=== PATIENT | female | born 1995 | race African-American/Black ===

== ENCOUNTER 2016-04-20 02:27 | Inpatient (IN) | payer MEDICAID, OTHER ==
[~2016-04-20] VITALS: Ht 165.1 cm; Wt 61.3 kg
[~2016-04-20 02:27] MED LIST: POLY10O OU
[2016-04-20 03:36] LABS: AUTOMATED NEUTROPHIL # 9.5 TH/MM3 (1.8-7.7); BASOPHIL % 0.3 % (0.0-2.0); EOSINOPHIL % 0.1 % (0.0-4.0); HEMATOCRIT 41.1 % (35.0-46.0); HEMO FLAGS DIFF FINAL; LYMPH % 10.3 % (9.0-44.0); LYMPHOCYTE # 1.2 TH/MM3 (1.0-4.8); MEAN CELL VOLUME 81.9 FL (80.0-100.0); MEAN CORPUSCULAR HEMOGLOBIN 27.2 PG (27.0-34.0); MEAN CORPUSCULAR HGB CONC 33.2 % (32.0-36.0); MONO % 6.4 % (0.0-8.0); NEUT % 82.9 % (16.0-70.0); PLATELET COUNT 251 TH/MM3 (150-450); RED BLOOD COUNT 5.01 MIL/MM3 (4.00-5.30); RED CELL DISTRIBUTION WIDTH 14.1 % (11.6-17.2); WHITE BLOOD COUNT 11.5 TH/MM3 (4.0-11.0)
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
[2016-04-20 03:48] LABS: ANION GAP 10 MEQ/L (5-15); AST (GOT) 16 U/L (16-38); BICARBONATE 22.4 MEQ/L (21.0-32.0); BLOOD UREA NITROGEN 14 MG/DL (7-18); CHLORIDE 109 MEQ/L (98-107); GLOMERULAR FILTRATION RATE 137 ML/MIN (>89); POTASSIUM 3.2 MEQ/L (3.5-5.1); SODIUM (NA) 141 MEQ/L (136-145)
[2016-04-20 03:53] LABS: AMPHETAMINE, URINE NEG (NEG); BARBITURATES, URINE NEG (NEG); COCAINE, URINE NEG (NEG)
[2016-04-20 03:54] LABS: ALKALINE PHOSPHATASE 70 U/L (45-117); ALT (GPT) 24 U/L (9-42); TOTAL BILIRUBIN ADULT 0.9 MG/DL (0.2-1.0)
[2016-04-20 04:02] LABS: ACETAMINOPHEN LESS THAN 2.0 MCG/ML (10.0-30.0)
[2016-04-20 07:00] VITALS: BP 118/74; PULSE 74; RESP 16; TEMP 98; O2SAT 99
[2016-04-20 11:57] VITALS: BP 91/58; PULSE 73; RESP 18; TEMP 98.2; O2SAT 100
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
[2016-04-20] MEDS ORDERED: MAGNESIUM HYDROXIDE SUSP 30 ML CUP PO PRN (15:15)
[2016-04-20] MEDS ORDERED: ALUMINUM/MAGNESIUM/SIMETH 30 ML CUP PO PRN (15:15)
[2016-04-20] MEDS ORDERED: ACETAMINOPHEN 325 MG TAB PO PRN (15:15)
[2016-04-20 16:55] VITALS: BP 120/73; PULSE 80; RESP 18; TEMP 98.7; O2SAT 98
[2016-04-21 06:30] VITALS: BP 103/52; PULSE 74; RESP 16; TEMP 98.1; O2SAT 100
[2016-04-21 09:13] LABS: ANION GAP 9 MEQ/L (5-15); BICARBONATE 24.9 MEQ/L (21.0-32.0); BLOOD UREA NITROGEN 13 MG/DL (7-18); CHLORIDE 107 MEQ/L (98-107); GLOMERULAR FILTRATION RATE 117 ML/MIN (>89); LDL CHOLESTEROL 56 MG/DL (0-99); POTASSIUM 3.5 MEQ/L (3.5-5.1); SODIUM (NA) 141 MEQ/L (136-145)
[2016-04-21 15:18] LABS: HEMOGLOBIN A1a 1.1 %; HEMOGLOBIN A1b 0.7 %; HEMOGLOBIN Ao 86.2 %; HEMOGLOBIN F 1.4 %; HEMOGLOBIN LA1C 1.6 %; HEMOGLOBIN P3 3.4 %
[2016-04-21] MEDS ORDERED: MAGNESIUM HYDROXIDE SUSP 30 ML CUP PO PRN (18:45)
[2016-04-21] MEDS ORDERED: hydrOXYzine HCL 50 MG TAB PO PRN (18:45)
[2016-04-21] MEDS ORDERED: ACETAMINOPHEN 325 MG TAB PO PRN (18:45)
[2016-04-21] MEDS ORDERED: ALUMINUM/MAGNESIUM/SIMETH 30 ML CUP PO PRN (18:45)
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
[2016-04-22 06:30] VITALS: BP 108/62; PULSE 88; RESP 18; TEMP 97.7; O2SAT 99
[2016-04-22 18:00] VITALS: BP 120/71; PULSE 83; RESP 18; TEMP 97.5
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
[2016-04-23 06:02] VITALS: BP 91/55; PULSE 70; RESP 18; TEMP 97.7; O2SAT 98
--- NOTE | 2016-04-23 10:29 | HHI.PYPN ---
Subjective Remarks Patient was seen and discussed with the medical staff director. Also talked to her mom. Patient denies any suicidal ideation intentions or plan. She is willing to seek outpatient counseling. Patient claimed that she is not getting any help here and she is not a behavior or management problem. Mother also is talking with their jew staff to set her up with the outpatient counseling to get her some help. Mother is not concerned or worried about her harming herself and would like to take her home. Patient was alert oriented 3 cooperative casually dressed her speech was clear spontaneous without any evidence of loose association denied any suicidal and/or homicidal ideation intentions or plan. Denied any auditory or visual hallucination. She would like to go home with her mother. We will discharge her as she does not meet the [place] act criteria Review of Systems Except as stated in HPI: all other systems reviewed are Neg Psychiatric: COMPLAINS OF: Depression Objective Alert: Yes [place]: Person (ox4), Place, Date, Situation Mood: Depressed Affect: Restricted Memory Intact: Comment (no impairmetn) Hallucinations: Other (denies any) Delusions: No Delusion Type: Other Suicidal: Ideation (denies at present) Homicidal: Ideation (denies at present) Insight/Judgement Fair Vitals/IOs Vital Signs Date Time Temp Pulse Resp B/P Pulse Ox O2 Delivery O2 Flow Rate FiO2 04/23/16 06:02 97.7 70 18 91/55 98 04/20/16 11:57 Room Air Intake and Output 04/22/16 04/22/16 04/23/16 08:00 16:00 00:00 Intake Total 240 ml 660 ml Balance 240 ml 660 ml Assessment & Plan Problem List: (1) Depression ICD Code: F32.9 Assessment & Plan Estimated LOS: days Justification for Cont. Inpt. Patient will be discharged in care of her mother to be followed up as an outpatient Request HC Surrog/Guard Advoc?: No Problem Qualifiers (1) Depression: Qualified Code: F32.1 - Moderate single current episode of major depressive disorder Ilan Loya MD Apr 23, 2016 10:29
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
== END 2016-04-23 13:20 | disposition home or self-care (01) | DRG 885 ==
LOC: NEPB 02:27 → NEDA 15:11 → H260 16:25
PROVIDERS: ADMIT Psychiatry & Neurology Psychiatry; ATTEND Psychiatry & Neurology Psychiatry
DX: F32.1 Major depressive disorder, single episode, moderate (principal); R45.851 Suicidal ideations; F43.10 Post-traumatic stress disorder, unspecified
CPT/HCPCS: 80048; 80053; 80061; 80307; 80320; 83036; 84703; 85025; 99284

== ENCOUNTER 2016-05-17 17:20 | Emergency (ER) | payer MEDICAID, OTHER ==
[~2016-05-17] VITALS: Ht 165.1 cm; Wt 65.0 kg
[2016-05-17 17:22] VITALS: BP 106/56; PULSE 86; RESP 16; TEMP 97.9; O2SAT 96
--- NOTE | 2016-05-17 17:56 | PD ---
Physical Exam Date Seen by Provider: May 17, 2016 Time Seen by Provider: 17:53 Narrative Patient seen in triage with complaint of Left Eye discomfort and watery drainage with erythema. Patient does not wear contacts. Patient denies Upper Respiratory Symptoms. Patient states Vision is normal. Vital Signs are stable. Patient awaiting room assignment. Data Data Last Documented VS Vital Signs Date Time Temp Pulse Resp B/P Pulse Ox O2 Delivery O2 Flow Rate FiO2 05/17/16 17:22 97.9 86 16 106/56 96 Room Air [facility] Medical Record Reviewed: Yes Supervised Visit with PRIMO: Yes Scripts No Active Prescriptions or Reported Meds Condition: Stable Ze Reinoso May 17, 2016 17:56
[2016-05-17] MEDS ORDERED: POLY10O LEFT EYE (18:10)
--- NOTE | 2016-05-17 18:11 | PD ---
HPI Chief Complaint: Eye Problems/Injury Time Seen by Provider: 18:09 Travel History International Travel<30 days: No Contact w/Intl Traveler<30days: No Traveled to known affect area: No History of Present Illness HPI 19-year-old female presents to the emergency Department with complaint of left eye drainage and irritation. Reports clear drainage. She denies eye pain, eye itching. Reports mild swelling to her eye lids. Denies fever, chills, nausea, vomiting. Denies trauma to the eye. Denies change in vision. No one else with similar symptoms. Has not tried any medications or treatments to be her symptoms. Allergies to chocolate and peanuts. No other modifying factors or associated signs and symptoms. PFSH Past Medical History Cancer: Yes (per pt) Diminished Hearing: No Endocrine: No Genitourinary: No Headaches: Yes (migraines 1x month) Immune Disorder: No Musculoskeletal: No Reproductive: No Respiratory: No Immunizations Current: Yes Seizures: Yes (per pt has had them but not since 6 years of age) Tetanus Vaccination: < 5 Years ?: Not LMP: 05/02/16 Social History Alcohol Use: No Tobacco Use: No Substance Use: No Allergies-Medications (Allergen,Severity, Reaction): Coded Allergies: Chocolate (Verified Allergy, Severe, 04/20/16) THROT SWELLS UP Peanut (Verified Allergy, Severe, 04/20/16) THROAT SWELLS Reported Meds & Prescriptions Reported Meds & Active Scripts Active Polytrim Opth Drops (Polymyxin/Trimethoprim Sulfate) 10,000-0.1 Unit/Ml-% Soln 2 Drop LEFT EYE Q6HR 7 Days Review of Systems Except as stated in HPI: all other systems reviewed are Neg Physical Exam Narrative GENERAL: Well-nourished, well-developed female patient, in no acute distress; afebrile, nontoxic appearing SKIN: Warm and dry. HEAD: Atraumatic. Normocephalic. EYES: Pupils equal and round at 3 mm with brisk reaction. PERRLA. EOMI. left lid eversion with no foreign body noted. Left eye with mild scleral erythema and mild lid edema. No orbital tenderness, erythema or cellulitis. Left eye with photophobia. No consensual photophobia. No scleral icterus. Clear drainage. ENT: Mucosa pink and moist. Airway patent. NECK: Trachea midline. CARDIOVASCULAR: Regular rate. RESPIRATORY: No accessory muscle use. NEUROLOGICAL: Awake and alert. Oriented 3. No obvious cranial nerve deficits. Motor grossly within normal limits. Normal speech. PSYCHIATRIC: Appropriate mood and affect; insight and judgment normal. Data Data Last Documented VS Vital Signs Date Time Temp Pulse Resp B/P Pulse Ox O2 Delivery O2 Flow Rate FiO2 05/17/16 17:22 97.9 86 16 106/56 96 Room Air MDM Medical Decision Making Medical Screen Exam Complete: Yes Emergency Medical Condition: Yes Medical Record Reviewed: Yes Differential Diagnosis Bacterial conjunctivitis, viral conjunctivitis, foreign body Narrative Course 20-year-old female physical exam consistent with left eye conjunctivitis. Polytrim drops prescribed for home. Patient verbalizes understanding and agreement with treatment plan. Patient is medically cleared and stable for discharge. Discussed reasons to return to the emergency department. Instructed patient to follow up with primary care provider. Patient agrees with treatment plan. The patients vital signs are stable and the patient is stable for outpatient follow-up and treatment. Patient discharged home, stable and in no acute distress. Diagnosis Primary Impression: Conjunctivitis, left eye Qualified Code: H10.9 - Conjunctivitis of left eye, unspecified conjunctivitis type Referrals: Primary Care Physician Patient Instructions: Conjunctivitis (ED), General Instructions Departure Forms: Tests/Procedures, Work Release Enter return to work date: May 19, 2016 Additional Instructions: Conjunctivitis is contagious Use antibiotic drops as prescribed Apply warm or cool compresses to both eyes for a few minutes several times daily to minimize irritation Avoid triggers, such as allergens, that may irritate your eyes Wash your hands frequently Do not share washcloths, towels, pillows, or any other material that has touched your eyes with any other household members Follow-up with your primary care provider Follow-up with ophthalmology as needed Return to the emergency department immediately with worsening of symptoms Med/Other Pt SpecificInfo: Prescription(s) given Scripts Polymyxin B-Trimethoprim Opth Drops (Polytrim Opth Drops)10,000-0.1 Unit/Ml-% Soln2 Drop LEFT EYE Q6HR 7 Days Ref 0 Prov:Mely Frazier 05/17/16 Disposition: 01 DISCHARGE HOME Condition: Stable Mely Frazier May 17, 2016 18:11
== END 2016-05-17 18:44 | disposition home or self-care (01) ==
LOC: NEPB 17:20
DX: H10.9 Unspecified conjunctivitis (principal); Z85.89 Personal history of malignant neoplasm of other organs and systems
CPT/HCPCS: 99282

== ENCOUNTER 2016-08-29 17:45 | Emergency (ER) | payer MEDICAID ==
[~2016-08-29 17:45] MED LIST changes: +POLY10O LEFT EYE; -POLY10O OU
[2016-08-29 17:47] VITALS: BP 130/72; PULSE 108; RESP 20; TEMP 98.5; O2SAT 98
--- NOTE | 2016-08-29 18:16 | PD ---
Physical Exam Date Seen by Provider: Aug 29, 2016 Time Seen by Provider: 18:15 Narrative 20 yo female here for evaluation of diarrhea and vomit x 2 days. Has had vomit twice yesterday. Epigastric pain and RUQ pain. No sick contacts. No recent travel. Unknown . Vitals are stable. Awaiting bed placement. Data Data Last Documented VS Vital Signs Date Time Temp Pulse Resp B/P Pulse Ox O2 Delivery O2 Flow Rate FiO2 08/29/16 17:47 98.5 108 20 130/72 98 Room Air [facility] Medical Record Reviewed: Yes Supervised Visit with PRIMO: Saurabh Sweeney Aug 29, 2016 18:16
[2016-08-29 19:32] LABS: BACTERIA, URINE MANY /hpf; BLOOD, URINE MOD (NEG); COMMENT (UR) CULTURE INDICATED; CULTURE IF INDICATED CULTURE INDICATED; GLUCOSE,URINE NEG (NEG); KETONE, URINE 10 mg/dL (NEG); MUCUS URINE MANY /lpf (OCC); SQUAMOUS EPITHELIAL CELL URINE 7 /hpf (0-5); URINE COLOR YELLOW (YELLW/STRAW)
[2016-08-29 19:33] LABS: NITRITE,URINE POS (NEG)
[2016-08-29 20:38] VITALS: BP 115/77; PULSE 90; RESP 18; O2SAT 99
[2016-08-29] MEDS ORDERED: SODIUM CHLOR 0.9% 1000 ML INJ 1,000 ML IV SCH (20:46)
--- NOTE | 2016-08-29 20:51 | PD ---
HPI Chief Complaint: GI Complaint Time Seen by Provider: 20:46 Travel History International Travel<30 days: No Contact w/Intl Traveler<30days: No Traveled to known affect area: No History of Present Illness HPI 20-year-old female here for evaluation of nausea, vomiting, diarrhea, abdominal pain. Patient reports symptoms have been going on for last 2 days. She complains of mid and right upper quadrant abdominal discomfort which she states is sharp, worse with movement and palpation, moderate intensity. She also has had subjective fevers and chills. No history of abdominal surgeries. No urinary symptoms. No vaginal bleeding or discharge. PFSH Past Medical History Cancer: Yes (per pt) Diminished Hearing: No Endocrine: No Genitourinary: No Headaches: Yes (migraines 1x month) Immune Disorder: No Musculoskeletal: No Reproductive: No Respiratory: No Immunizations Current: Yes Seizures: Yes (per pt has had them but not since 6 years of age) Tetanus Vaccination: < 5 Years ?: Not LMP: 08/07/2016 Past Surgical History Surgical History: No Previous Surgery Other Surgery: No Social History Alcohol Use: No Tobacco Use: No Substance Use: No Allergies-Medications (Allergen,Severity, Reaction): Coded Allergies: Chocolate (Verified Allergy, Severe, 04/20/16) THROT SWELLS UP Peanut (Verified Allergy, Severe, 04/20/16) THROAT SWELLS Reported Meds & Prescriptions Reported Meds & Active Scripts Active No Active Prescriptions or Reported Medications Review of Systems Except as stated in HPI: all other systems reviewed are Neg Physical Exam Narrative GENERAL: Well-developed, well-nourished, comfortable, no apparent distress. SKIN: Focused skin assessment warm/dry. HEAD: Atraumatic. Normocephalic. EYES: Pupils equal and round. No scleral icterus. No injection or drainage. ENT: No nasal bleeding or discharge. Mucous membranes pink and moist. NECK: Trachea midline. No JVD. CARDIOVASCULAR: Regular rate and rhythm. No murmur appreciated. RESPIRATORY: No accessory muscle use. Clear to auscultation. Breath sounds equal bilaterally. GASTROINTESTINAL: Abdomen soft, nondistended. Mild to moderate periumbilical, epigastric, and right upper quadrant tenderness without peritoneal signs. Rest of abdomen is soft and nontender. Normal bowel sounds. No hernias. MUSCULOSKELETAL: No obvious deformities. No clubbing. No cyanosis. No edema. NEUROLOGICAL: Awake and alert. No obvious cranial nerve deficits. Motor grossly within normal limits. Normal speech. PSYCHIATRIC: Appropriate mood and affect; insight and judgment normal. Data Data Last Documented VS Vital Signs Date Time Temp Pulse Resp B/P Pulse Ox O2 Delivery O2 Flow Rate FiO2 08/29/16 21:40 69 18 106/79 100 Room Air 08/29/16 17:47 98.5 Orders Complete Blood Count With Diff (08/29/16 18:17) Comprehensive Metabolic Panel (08/29/16 18:17) Urinalysis - C+S If Indicated (08/29/16 18:17) Iv Access Insert/Monitor (08/29/16 18:17) Lipase (08/29/16 18:17) Ed Urine Pregnancytest Poc (08/29/16 18:17) Urine Culture (08/29/16 18:40) Comprehensive Metabolic Panel (08/29/16 20:46) Lipase (08/29/16 20:46) Ecg Monitoring (08/29/16 20:46) Oximetry (08/29/16 20:46) Ondansetron Inj (Zofran Inj) (08/29/16 21:00) Sodium Chlor 0.9% 1000 Ml Inj (Ns 1000 M (08/29/16 20:46) Sodium Chloride 0.9% Flush (Ns Flush) (08/29/16 21:00) Ketorolac Inj (Toradol Inj) (08/29/16 21:00) Ceftriaxone Inj (Rocephin Inj) (08/29/16 21:00) Ct Abd/Pel W Iv Contrast(Rout) (08/29/16 20:50) Iohexol 350 Inj (Omnipaque 350 Inj) (08/29/16 22:03) Labs Laboratory Tests Test 08/29/16 08/29/16 18:40 20:50 Urine Color YELLOW Urine Turbidity HAZY Urine pH 6.0 Urine Specific [place] 1.031 Urine Protein 30 mg/dL Urine Glucose (UA) NEG mg/dL Urine Ketones 10 mg/dL Urine Occult Blood MOD Urine Nitrite POS Urine Bilirubin NEG Urine Urobilinogen 2.0 MG/DL Urine Leukocyte Esterase TRACE Urine RBC 2 /hpf Urine WBC 4 /hpf Urine Squamous Epithelial 7 /hpf Cells Urine Bacteria MANY /hpf Urine Mucus MANY /lpf Microscopic Urinalysis Comment CULTURE INDICATED White Blood Count 3.5 TH/MM3 Red Blood Count 5.16 MIL/MM3 Hemoglobin 14.2 GM/DL Hematocrit 41.8 % Mean Corpuscular Volume 80.9 FL Mean Corpuscular Hemoglobin 27.6 PG Mean Corpuscular Hemoglobin 34.1 % Concent Red Cell Distribution Width 12.9 % Platelet Count 205 TH/MM3 Mean Platelet Volume 8.5 FL Neutrophils (%) (Auto) % Lymphocytes (%) (Auto) % Monocytes (%) (Auto) % Eosinophils (%) (Auto) % Basophils (%) (Auto) % Neutrophils # (Auto) TH/MM3 Lymphocytes # (Auto) TH/MM3 Monocytes # (Auto) TH/MM3 Eosinophils # (Auto) TH/MM3 Basophils # (Auto) TH/MM3 CBC Comment AUTO DIFF Differential Total Cells 100 Counted Neutrophils % (Manual) 45 % Lymphocytes % 35 % Monocytes % 18 % Basophils % 2 % Neutrophils # (Manual) 1.6 TH/MM3 Differential Comment FINAL DIFF MANUAL Platelet Estimate NORMAL Platelet Morphology Comment NORMAL Red Cell Morphology Comment NORMAL Sodium Level 137 MEQ/L Potassium Level 3.5 MEQ/L Chloride Level 107 MEQ/L Carbon Dioxide Level 22.6 MEQ/L Anion Gap 7 MEQ/L Blood Urea Nitrogen 11 MG/DL Creatinine 0.71 MG/DL Estimat Glomerular Filtration 128 ML/MIN Rate Random Glucose 95 MG/DL Calcium Level 8.8 MG/DL Total Bilirubin 0.9 MG/DL Aspartate Amino Transf 15 U/L (AST/SGOT) Alanine Aminotransferase 18 U/L (ALT/SGPT) Alkaline Phosphatase 85 U/L Total Protein 7.9 GM/DL Albumin 3.8 GM/DL Lipase 107 U/L [facility] Medical Decision Making Medical Screen Exam Complete: Yes Emergency Medical Condition: Yes Differential Diagnosis Gastroenteritis, gastritis, peptic ulcer disease, pancreatitis, hepatobiliary disease, appendicitis Narrative Course Vital signs reviewed. CBC shows WBC 3.5, hemoglobin 14.2, hematocrit 41.8, platelets 205. CMP is unremarkable. Lipase is 108. UA shows hazy urine, 30 protein, moderate occult blood, positive nitrites, trace leukocyte esterase, many bacteria. CT abdomen pelvis: Mild periportal edema otherwise negative. They she was made aware of all findings per she is resting comfortably. She is tolerating clear liquids early in the emergency department. She states she is feeling a lot better after receiving pain medication and Zofran. She was also given a dose of IV Rocephin given her UA findings. She was made aware of her leukopenia and is stable to have this followed up as an outpatient. Patient instructed to follow-up with a primary care physician this week. She was informed on when to return to the emergency department. She verbalizes understanding and agreement with plan. Diagnosis Primary Impression: Gastroenteritis Additional Impressions: UTI (urinary tract infection) Qualified Code: N39.0 - Urinary tract infection with hematuria, site unspecified Leukopenia Qualified Code: D72.819 - Leukopenia, unspecified type Abdominal pain Qualified Code: R10.13 - Epigastric pain Referrals: Primary Care Physician 3 days Additional Instructions: Follow-up with a primary care physician this week. Stay hydrated with plenty of fluids. Return to the emergency department for worsening symptoms or any other concerns. Scripts Ondansetron Odt (Zofran Odt)4 Mg Tab4 Mg SL Q6HR PRN (Nausea/Vomiting) #14 TAB Ref 0 Prov:Ran Hawley MD 08/29/16 Nitrofurantoin Monohydrate Macrocrystals (Macrobid)100 Mg Skt495 Mg PO BID 7 Days Ref 0 Prov:Ran Hawley MD 08/29/16 Disposition: 01 DISCHARGE HOME Condition: Stable Ran Hawley MD Aug 29, 2016 20:51
[2016-08-29] MEDS ORDERED: cefTRIAXone INJ 1,000 MG in SODIUM CHLORIDE 0.9% INJ 100 ML IV ONE (21:00)
[2016-08-29] MEDS ORDERED: KETOROLAC TROMETHAMINE 30 MG/ML (IVP) VIAL IV PUSH ONE (21:00)
[2016-08-29] MEDS ORDERED: SODIUM CHLORIDE 0.9% FLUSH 10 ML FLUSH IV FLUSH PRN (21:00)
[2016-08-29] MEDS ORDERED: ONDANSETRON HCL 4 MG/2 ML VIAL IVP ONE (21:00)
[2016-08-29 21:12] LABS: HEMATOCRIT 41.8 % (35.0-46.0); MEAN CELL VOLUME 80.9 FL (80.0-100.0); MEAN CORPUSCULAR HEMOGLOBIN 27.6 PG (27.0-34.0); MEAN CORPUSCULAR HGB CONC 34.1 % (32.0-36.0); PLATELET COUNT 205 TH/MM3 (150-450); RED BLOOD COUNT 5.16 MIL/MM3 (4.00-5.30); RED CELL DISTRIBUTION WIDTH 12.9 % (11.6-17.2); WHITE BLOOD COUNT 3.5 TH/MM3 (4.0-11.0)
[2016-08-29 21:16] LABS: HEMO FLAGS AUTO DIFF
[2016-08-29 21:40] VITALS: BP 106/79; PULSE 69; RESP 18; O2SAT 100
[2016-08-29 21:41] LABS: ALT (GPT) 18 U/L (9-42); ANION GAP 7 MEQ/L (5-15); AST (GOT) 15 U/L (16-38); BICARBONATE 22.6 MEQ/L (21.0-32.0); BLOOD UREA NITROGEN 11 MG/DL (7-18); CHLORIDE 107 MEQ/L (98-107); GLOMERULAR FILTRATION RATE 128 ML/MIN (>89); POTASSIUM 3.5 MEQ/L (3.5-5.1); SODIUM (NA) 137 MEQ/L (136-145)
[2016-08-29 21:44] LABS: ALKALINE PHOSPHATASE 85 U/L (45-117); TOTAL BILIRUBIN ADULT 0.9 MG/DL (0.2-1.0)
[2016-08-29 21:56] LABS: BASOPHILS 2 % (0-2); NEUTROPHIL # MANUAL DIFF 1.6 TH/MM3 (1.8-7.7); POLYS (SEG NEUTROPHILS) 45 % (16-70); SCAN/DIFF FINAL DIFF MANUAL; WBC DIFF SAMPLE 100
[2016-08-29 21:57] LABS: PLATELET ESTIMATE SMEAR NORMAL (NORMAL); PLATELET MORPHOLOGY NORMAL (NORMAL)
[2016-08-29] MEDS ORDERED: IOHEXOL 350 MG/ML 10 ML VIAL (for RAD DIAG) IV ONE (22:03)
--- NOTE | 2016-08-29 22:09 | RADRPT ---
EXAM DATE/TIME: 08/29/2016 21:56 [place] COMPARISON: No previous studies available for comparison. INDICATIONS : Right upper quadrant pain, nausea and vomiting. IV CONTRAST: 75 cc Omnipaque 350 (iohexol) IV ORAL CONTRAST: No oral contrast ingested. RADIATION DOSE: 6.56 CTDIvol (mGy) MEDICAL HISTORY : None SURGICAL HISTORY : None. ENCOUNTER: Initial ACUITY: 2 days PAIN SCALE: 8/10 LOCATION: Right upper quadrant TECHNIQUE: Volumetric scanning of the abdomen and pelvis was performed. Using automated exposure control and ad justment of the mA and/or kV according to patient size, radiation dose was kept as low as reasonably achievable to obtain optimal diagnostic quality images. DICOM format image data is available electro nically for review and comparison. FINDINGS: LOWER LUNGS: The visualized lower lungs are clear. LIVER: There is mild periportal edema. This can be seen with acute inflammatory process such as hepatitis. Finding is nonspecific. SPLEEN: Normal size without lesion. PANCREAS: Within normal limits. KIDNEYS: Normal in size and shape. There is no mass, stone or hydronephrosis. ADRENAL GLANDS: Within normal limits. VASCULAR: There is no aortic aneurysm. BOWEL/MESENTERY: The stomach, small bowel, and colon demonstrate no acute abnormality. There is no free intraperitone al air or fluid. ABDOMINAL WALL: Within normal limits. RETROPERITONEUM: There is no lymphadenopathy. BLADDER: No wall thickening or mass. REPRODUCTIVE: Within normal limits. INGUINAL: There is no lymphadenopathy or hernia. MUSCULOSKELETAL: Within normal limits for patient age. CONCLUSION: Mild periportal edema otherwise negative. Dagoberto Reynolds MD FACR on August 29, 2016 at 22:06 Board Certified Radiologist. This report was verified electronically.
[2016-08-29] MEDS ORDERED: MACR100C2 PO (22:46)
[2016-08-29] MEDS ORDERED: ZOFR4TAB3 SL (22:46)
[2016-08-29 22:55] VITALS: BP 108/78
== END 2016-08-29 23:00 | disposition home or self-care (01) ==
LOC: NEPD 17:45
DX: K52.9 Noninfective gastroenteritis and colitis, unspecified (principal); N39.0 Urinary tract infection, site not specified; D72.819 Decreased white blood cell count, unspecified; R56.9 Unspecified convulsions
CPT/HCPCS: 74177; 80053; 81001; 83690; 84703; 85007; 85027; 87077; 87086; 87186; 96374; 96375; 99285; J0696; J1885; J2405; J7030; Q9967

== ENCOUNTER 2016-09-02 23:20 | Emergency (ER) | payer MEDICAID ==
[~2016-09-02] VITALS: Ht 165.1 cm; Wt 65.0 kg
[~2016-09-02 23:20] MED LIST changes: +MACR100C2 PO; -POLY10O LEFT EYE; +ZOFR4TAB3 SL
[2016-09-02 23:21] VITALS: BP 103/70; PULSE 72; RESP 16; TEMP 98.4; O2SAT 99
[2016-09-03 00:03] VITALS: RESP 16; O2SAT 100
[2016-09-03 00:11] LABS: BLOOD, URINE LARGE (NEG); COMMENT (UR) CULT NOT INDICATED; CULTURE IF INDICATED CULT NOT INDICATED; GLUCOSE,URINE NEG (NEG); KETONE, URINE NEG (NEG); MUCUS URINE FEW /lpf (OCC); NITRITE,URINE NEG (NEG); PH, URINE 6.5 (5.0-8.5); SQUAMOUS EPITHELIAL CELL URINE 3 /hpf (0-5); URINE COLOR YELLOW (YELLW/STRAW)
[2016-09-03 00:11] LABS: AUTOMATED NEUTROPHIL # 3.5 TH/MM3 (1.8-7.7); BASOPHIL # 0.1 TH/MM3 (0-0.2); BASOPHIL % 0.9 % (0.0-2.0); EOSINOPHIL # 0.1 TH/MM3 (0-0.4); EOSINOPHIL % 1.7 % (0.0-4.0); HEMATOCRIT 38.4 % (35.0-46.0); HEMO FLAGS DIFF FINAL; LYMPH % 35.4 % (9.0-44.0); LYMPHOCYTE # 2.3 TH/MM3 (1.0-4.8); MEAN CELL VOLUME 82.1 FL (80.0-100.0); MEAN CORPUSCULAR HEMOGLOBIN 27.9 PG (27.0-34.0); MONO % 8.1 % (0.0-8.0); NEUT % 53.9 % (16.0-70.0); PLATELET COUNT 251 TH/MM3 (150-450); RED BLOOD COUNT 4.67 MIL/MM3 (4.00-5.30); WHITE BLOOD COUNT 6.5 TH/MM3 (4.0-11.0)
--- NOTE | 2016-09-03 00:18 | PD ---
HPI Chief Complaint: GI Complaint Time Seen by Provider: 23:51 Travel History International Travel<30 days: No Contact w/Intl Traveler<30days: No Traveled to known affect area: No History of Present Illness HPI The patient is a 20 year old female who presents to the [facility] emergency department with a history of abdominal pain that she reports began approximately a week ago. She reports that the pain comes and goes. She reports that the pain is in the midepigastric and left upper quadrant of the abdomen. She reports that the pain is sharp in character. She reports that it is worse with eating, urinating, or moving her bowels. She reports that she has had associated diarrhea for the last few days. She reports that the diarrhea occurs twice per day. She denies having any blood in her stool or black or tarry stools. She was seen in the emergency department on August 29 related to the abdominal pain and diarrhea. She was diagnosed with a urinary tract infection. She underwent CT scan of the abdomen and pelvis with IV contrast that showed mild. Portable edema otherwise negative. The patient's urine culture from August 29 came back with Escherichia coli that was pansensitive. She reports that she started on Macrobid on August 30. She continues to take this. She denies having any dysuria, urinary frequency, or urinary urgency. She additionally reports that she has a left-sided flank pain that is been present for the last 3 months intermittently. She denies having a primary care physician. Otherwise on review of systems, the patient denies any fevers, cough, congestion, neck pain, chest pain, shortness of breath, nausea, vomiting, or neurologic symptoms. LMP: Began yesterday PFSH Past Medical History Narrative Medical The patient's past medical history is significant for migraine headaches, childhood seizures that resolved at the age of 6. Cancer: Yes (per pt) Diminished Hearing: No Endocrine: No Genitourinary: No Headaches: Yes (migraines 1x month) Immune Disorder: No Musculoskeletal: No Reproductive: No Respiratory: No Immunizations Current: Yes Migraines: Yes Seizures: Yes (per pt has had them but not since 6 years of age) ?: Not LMP: 09/02/16 Past Surgical History Narrative Surgical The patient's past surgical history is reportedly none. Surgical History: No Previous Surgery Other Surgery: No Social History Alcohol Use: No Tobacco Use: No Substance Use: No Allergies-Medications (Allergen,Severity, Reaction): Coded Allergies: Chocolate (Verified Allergy, Severe, 09/02/16) THROT SWELLS UP Peanut (Verified Allergy, Severe, 09/02/16) THROAT SWELLS Reported Meds & Prescriptions Reported Meds & Active Scripts Active Zofran Odt (Ondansetron Odt) 4 Mg Tab 4 Mg SL Q6HR PRN Macrobid (Nitrofurantoin Monoh/Nitrofur Macro) 100 Mg Cap 100 Mg PO BID 7 Days Review of Systems Except as stated in HPI: all other systems reviewed are Neg General / Constitutional: No: Fever Eyes: No: Visual changes HENT: No: Headaches Cardiovascular: No: Chest Pain or Discomfort Respiratory: No: Shortness of Breath Gastrointestinal: Positive: Diarrhea, Abdominal Pain, Changes in Bowel Habits, Indigestion, Loss of Appetite, No: Nausea, Vomiting, Hematemesis, Hematochezia , Constipation Genitourinary: Positive: Flank Pain (right flank pain), No: Urgency, Frequency , Dysuria Musculoskeletal: Positive: Myalgias, Pain Skin: No Rash Neurologic: No: Weakness Psychiatric: No: Depression Endocrine: No: Polydipsia Hematologic/Lymphatic: No: Easy Bruising Physical Exam Narrative General: The patient is a well-developed well-nourished female in no acute distress. Head and Neck exam: Head is normocephalic atraumatic. Eyes: EOMI, pupils are equal round and reactive to light. Nose: Midline septum with pink mucous membranes Mouth: Dentition unremarkable. Moist mucus membranes. Posterior oropharynx is not erythematous. No tonsillar hypertrophy. Uvula midline. Airway patent. Neck: No palpable lymphadenopathy. No nuchal rigidity. No thyromegaly. Cardiovascular: Regular rate and rhythm without murmurs, gallops, or rubs. Lungs: Clear to auscultation bilaterally. No wheezes, rhonchi, or rales. Abdomen: Soft, with tenderness on palpation of the left upper quadrant of the abdomen, no other tenderness on palpation of the other quadrants. No guarding, rebound, or rigidity. Normal bowel sounds are audible. No tenderness on palpation of McBurney's point. Negative [place] sign. Extremities: No clubbing, cyanosis, or edema. 2+ pulses in all 4 extremities. Back: No spinous process tenderness to palpation. No costovertebral angle tenderness to palpation. The patient reports tenderness on palpation along the left side of the posterior sacrum, over the left SI joint superior aspect. There is no surrounding erythema, edema, or crepitus. Neurologic Exam: Grossly nonfocal. Skin Exam: No rash noted. Intact skin that is warm and dry. Data Data Last Documented VS Vital Signs Date Time Temp Pulse Resp B/P Pulse Ox O2 Delivery O2 Flow Rate FiO2 09/03/16 00:03 16 100 Room Air 09/02/16 23:21 98.4 72 103/70 Orders Complete Blood Count With Diff (09/02/16 23:53) Comprehensive Metabolic Panel (09/02/16 23:53) C-Reactive Protein (Crp) (09/02/16 23:53) Lipase (09/02/16 23:53) Urinalysis - C+S If Indicated (09/02/16 23:53) Iv Access Insert/Monitor (09/02/16 23:53) Ecg Monitoring (09/02/16 23:53) Oximetry (09/02/16 23:53) Ed Urine Pregnancytest Poc (09/02/16 23:53) Sodium Chlor 0.9% 1000 Ml Inj (Ns 1000 M (09/03/16 01:00) Ketorolac Inj (Toradol Inj) (09/03/16 01:00) Labs Laboratory Tests Test 09/02/16 09/03/16 23:50 00:00 Urine Color YELLOW Urine Turbidity HAZY Urine pH 6.5 Urine Specific [place] 1.020 Urine Protein TRACE mg/dL Urine Glucose (UA) NEG mg/dL Urine Ketones NEG mg/dL Urine Occult Blood LARGE Urine Nitrite NEG Urine Bilirubin NEG Urine Urobilinogen LESS THAN 2.0 MG/DL Urine Leukocyte Esterase NEG Urine RBC 3 /hpf Urine WBC 3 /hpf Urine Squamous Epithelial 3 /hpf Cells Urine Mucus FEW /lpf Microscopic Urinalysis Comment CULT NOT INDICATED White Blood Count 6.5 TH/MM3 Red Blood Count 4.67 MIL/MM3 Hemoglobin 13.0 GM/DL Hematocrit 38.4 % Mean Corpuscular Volume 82.1 FL Mean Corpuscular Hemoglobin 27.9 PG Mean Corpuscular Hemoglobin 34.0 % Concent Red Cell Distribution Width 13.0 % Platelet Count 251 TH/MM3 Mean Platelet Volume 8.2 FL Neutrophils (%) (Auto) 53.9 % Lymphocytes (%) (Auto) 35.4 % Monocytes (%) (Auto) 8.1 % Eosinophils (%) (Auto) 1.7 % Basophils (%) (Auto) 0.9 % Neutrophils # (Auto) 3.5 TH/MM3 Lymphocytes # (Auto) 2.3 TH/MM3 Monocytes # (Auto) 0.5 TH/MM3 Eosinophils # (Auto) 0.1 TH/MM3 Basophils # (Auto) 0.1 TH/MM3 CBC Comment DIFF FINAL Differential Comment Sodium Level 138 MEQ/L Potassium Level 4.0 MEQ/L Chloride Level 106 MEQ/L Carbon Dioxide Level 26.0 MEQ/L Anion Gap 6 MEQ/L Blood Urea Nitrogen 7 MG/DL Creatinine 0.70 MG/DL Estimat Glomerular Filtration 130 ML/MIN Rate Random Glucose 73 MG/DL Calcium Level 8.8 MG/DL Total Bilirubin 0.4 MG/DL Aspartate Amino Transf 15 U/L (AST/SGOT) Alanine Aminotransferase 19 U/L (ALT/SGPT) Alkaline Phosphatase 74 U/L C-Reactive Protein LESS THAN 0.29 MG/DL Total Protein 7.3 GM/DL Albumin 3.5 GM/DL Lipase 112 U/L MDM Medical Decision Making Medical Screen Exam Complete: Yes Emergency Medical Condition: Yes Medical Record Reviewed: Yes Differential Diagnosis Acid reflux, versus gastritis, versus musculoskeletal strain, versus pancreatitis, versus pyelonephritis. Narrative Course During the course of the patients emergency department visit, the patients history, examination, and differential diagnosis were reviewed with the patient. The patient had IV access obtained and blood work sent for analysis. The patient was placed on a environmental monitoring technician with oximetry and blood pressure monitoring. The patient's electronic medical record was reviewed. The patient recently underwent CT scan on August 29 that showed no acute abnormality other than periportal inflammation, however LFTs were found to be within normal limits. The patient was initially provided normal saline 1 L IV fluid bolus, Toradol 15 mg IV. The patients laboratory studies were reviewed and remarkable for a CBC that shows a white count of 6.5, hemoglobin 13, platelets 251 with 8.1 monocytes, CMP is remarkable for a glucose of 73, AST 15, lipase 112, C-reactive protein is less than 0.29. Urinalysis shows large occult blood, however otherwise unremarkable. The patient is currently on her menstrual cycle which would explain some of the blood. Overall the patient's laboratory studies are improved compared to previously and her abdominal examination is benign, therefore additional imaging would not be recommended as the risk of radiation exposure outweighs the benefit. The patient was given a trial of an acid booster pump operator, famotidine. The patient was instructed regarding the importance of close follow-up with a primary care doctor. The patient is resting comfortably and feels better, is alert and in no distress. The patients results and examination findings were discussed with the patient. The repeat examination is unremarkable and benign. The history, exam, diagnostic testing, and current condition do not suggest any significant pathology to warrant further testing, continued ED treatment, admission, or surgical evaluation at this point. The vital signs have been stable. The patient does not have uncontrollable pain, intractable vomiting, or other significant symptoms. The patient's condition is stable and appropriate for discharge. The patient will pursue further outpatient evaluation with a primary care physician or other designated or consulting physician as indicated in the discharge instructions. The patient expressed understanding and was agreeable with this plan. Diagnosis Primary Impression: Abdominal pain Qualified Code: R10.12 - Left upper quadrant pain Referrals: Primary Care Physician 2 days Patient Instructions: Abdominal Pain (ED), General Instructions Additional Instructions: Continue Macrobid until the course of antibiotic is completed. Med/Other Pt SpecificInfo: Prescription(s) given, No Change to Meds Scripts Famotidine 20 Mg Tab20 Mg PO BID #14 TAB Ref 0 Prov:Billie Vazquez MD 09/03/16 Disposition: 01 DISCHARGE HOME Condition: Stable Billie Vazquez MD Sep 03, 2016 00:18
[2016-09-03 00:33] LABS: ALT (GPT) 19 U/L (9-42)
[2016-09-03 00:36] LABS: ALKALINE PHOSPHATASE 74 U/L (45-117); TOTAL BILIRUBIN ADULT 0.4 MG/DL (0.2-1.0)
[2016-09-03 00:45] LABS: ANION GAP 6 MEQ/L (5-15); AST (GOT) 15 U/L (16-38); BLOOD UREA NITROGEN 7 MG/DL (7-18); CHLORIDE 106 MEQ/L (98-107); GLOMERULAR FILTRATION RATE 130 ML/MIN (>89); SODIUM (NA) 138 MEQ/L (136-145)
[2016-09-03] MEDS ORDERED: KETOROLAC TROMETHAMINE 30 MG/ML (IVP) VIAL IV PUSH ONE (01:00)
[2016-09-03] MEDS ORDERED: SODIUM CHLOR 0.9% 1000 ML INJ 1,000 ML IV ONE (01:00)
[2016-09-03] MEDS ORDERED: FAMO20TA2 PO (01:07)
== END 2016-09-03 02:10 | disposition home or self-care (01) ==
LOC: NEPE 23:20
DX: R10.12 Left upper quadrant pain (principal); R10.13 Epigastric pain; R19.7 Diarrhea, unspecified; Z79.899 Other long term (current) drug therapy
CPT/HCPCS: 80053; 81001; 83690; 84703; 85025; 86140; 96361; 96374; 99284; J1885; J7030